=== PATIENT | female | born 1995 | race Caucasian/White ===

== ENCOUNTER 2024-06-03 07:32 | Inpatient (IN) ==
[2024-06-03] MEDS ORDERED: LIDOCAINE 1% LOCAL 20 ML VIAL INFIL PRN (08:02)
[2024-06-03] MEDS ORDERED: OXYTOCIN 30 UNITS/NSS 30 UNITS/500 ML BAG IV PRN (08:02)
[2024-06-03] MEDS: LACTATED RINGER'S 1,000 ML IV PRN (08:31)
[2024-06-03 08:38] LABS: Hematocrit (blood only) 39.1 % (37.0-47.0); Hemoglobin 12.9 g/dl (12.0-16.0); Mean Corpuscular Hemoglobin 30.4 pg (25.0-34.0); Mean Corpuscular Volume 92.2 fL (80.0-100.0); Mean Platelet Volume 9.5 fL (9.4-12.4); Platelet Count 265 K/uL (130-400); RDW Coefficient of Variation 12.8 % (11.5-14.5); Red Blood Count 4.24 M/uL (4.20-5.40); White Blood Count 8.94 K/ul (4.8-10.8)
[2024-06-03] MEDS: OXYTOCIN 30 UNITS/NSS 30 UNITS/500 ML BAG IV PRN (09:16)
--- NOTE | 2024-06-03 09:21 | History & Physical Report ---
Date of Service June 03, 2024 Assessment & Plan (1) Encounter for induction of labor: Plan: 29 y/o G 1 40WGA presented for IOL Anthony bulb in Pitocin AROM as indicated Epidural PRN Anthony bulb Monitor FHT Admission and Anticipated Discharge Date Admission Date: June 03, 2024 History of Present Illness Chief Complaint: came in for IOL Primary Care Provider: NO PCP 29 y/o female GP currently at 40WGA with an DELORES 06/02/24 as determined by US, who is here for IOL. complicated by: none Had regular appointments with OB Contractions irregular movement feeling them regularly No Fluid loss No Vaginal bleeding External FHT and external uterine monitors used: Category 1 tracing Labs: Allergies Allergy/AdvReac Type Severity Reaction Status Date / Time No Known Allergies Allergy Verified 06/03/24 08:24 Home Medications Medication Instructions Recorded Confirmed Type vits no.124-ferrous fum 1 tab PO DAILY 06/02/24 06/03/24 History 27 mg iron-folic acid 800 mcg tablet ( Vitamin) Patient History Medical History (Updated 06/03/24 @ 09:27 by Anatoly Panda MD) Varicella vaccination Surgical History History of dental surgery S/P wisdom tooth extraction Family History Mother Hypertension Heart murmur Grandmother (Maternal) Hypertension Denies family history of Ovarian cancer Breast cancer Colorectal cancer Social History Smoking Status: Former smoker Tobacco Type: Cigarettes Do You Dip or Chew Tobacco: No; Hx Alcohol Use: No Hx Substance Use: No Preferred Language: Frisian Communication Ability: Effective Product Marketing Manager Required: No Beliefs That Will Affect Care: None marital status: Single marital status details: claudio Polanco [phone] Current Living Situation: Alone Current Living Situation Comment: lives with fob, dog, cat-fob changing litter current occupational status: employed current occupation: restaurant hourly team member Other Information That Helps Us Care for You: No Feels Safe at Home: Yes Safety Concerns: Feels Safe At This Time Assistive Devices: None Immunizations: Rubella immune OB History G1 MEDIA SENIOR RECRUITER History last pap 06/2023-[facility] [place] Review of Systems denies chest pain or SOB denies fever/chills denies HAMPTON/changes in vision denies dysuria denies LE pain Physical Exam Physical Exam: General: Alert and oriented. No acute distress Cardiac: Regular rate and rhythm, no murmurs appreciated Respiratory: Lungs clear to auscultation bilaterally, No increased work of breathing Abdominal: Soft, non-tender, non-distended. Bowel sounds present. Gravid uterus. Extremities: No lower extremity edema, calves non-tender bilaterally Genitourinary: Manual OB Exam: + cervical dilation 1 cm, + cervical effacement 50% (soft) and + station -2 OB Exam Monitor Tracing: + external FHT monitor used, + external uterine monitor used, + category I and + normal FHT variability speculum was placed and cervix visualized. Anthony catheter inserted into the internal cervical os. 40cc sterile water instilled into the balloon and the catheter then placed on traction and secured to her left thigh. she tolerated the procedure well. Results & Data Vital Signs (Past 12 Hours) Vital Signs Temp Pulse Resp BP 06/03/24 07:45 37.1 C 18 06/03/24 07:41 118 H 137/86 Monitoring External Monitor Cat 1,good acclesl and variations Supervising Physician Co-Signing Physician Notes Resident Physician Supervision Note: I interviewed and examined the patient. Discussed with Dr. Panda and agree with findings and plan as documented in the note. Any exceptions or clarifications are listed here: [None] Documented By: Gretchen Rodriguez MD, FACOG Resident Activity Tracking Resident Involvement: Resident Care Provided Care Provided: OB Delivery
[2024-06-03] MEDS ORDERED: NALBUPHINE HCL 5 MG in SYRINGE 0 ML IV PRN (15:48)
[2024-06-03] MEDS ORDERED: PROMETHAZINE HCL 6.25 MG in SODIUM CHLORIDE 0.9% 50 ML IV PRN (15:48)
[2024-06-03] MEDS ORDERED: LIDOCAINE 2% MPF LOCAL 5 ML VIAL EPI PRN (15:48)
[2024-06-03] MEDS ORDERED: ONDANSETRON INJ 2 MG/ML 2 ML VIAL IV PRN (15:48)
[2024-06-03] MEDS ORDERED: ePHEDrine sulfate 50 MG/ML AMP IV PRN (15:48)
[2024-06-03] MEDS ORDERED: ROPIVACAINE 0.5% PF 5 MG/ML 20 ML VIAL EPI PRN (15:48)
[2024-06-03] MEDS ORDERED: SODIUM CHLORIDE 0.9% PF INJ 10 ML VIAL EPI PRN (15:48)
[2024-06-03] MEDS ORDERED: NALOXONE HCL 1 MG in SODIUM CHLORIDE 0.9% 1,000 ML IV PRN (15:48)
[2024-06-03] MEDS ORDERED: diphenhydrAMINE 50 MG/ML VIAL IV PRN (15:48)
[2024-06-03] MEDS ORDERED: NALOXONE HCL 0.4 MG/1 ML VIAL/CARP IV PRN (15:48)
[2024-06-03] MEDS ORDERED: fentaNYL citrate PF 100 MCG/2 ML VIAL EPI PRN (15:48)
[2024-06-03] MEDS ORDERED: BUPIVACAINE 0.25% PF 30 ML VIAL EPI PRN (15:48)
--- NOTE | 2024-06-03 15:48 | Anesthesiology Consultation ---
Date of Service June 03, 2024 Assessment & Plan Chart Review Chart Review: Patient NOT seen in Pre Admission Testing and Acceptable Risk for Labor Epidural Consults Requested none ASA ASA2 Proposed Anesthesia Anesthesia Type: Labor Epidural Risk / Benefits Reviewed With: PT / POA / Parent / Guardian, Accepts Plan and Informed Consent Obtained History Height/Weight Height: 5 ft 2 in Weight: 84.368 kg Allergies Allergy/AdvReac Type Severity Reaction Status Date / Time No Known Allergies Allergy Verified 06/03/24 08:24 Medications Home Medications Medication Instructions Recorded Confirmed Last Taken vits no.124-ferrous fum 1 tab PO DAILY 06/02/24 06/03/24 05/27/24 08:00 27 mg iron-folic acid 800 mcg tablet ( Vitamin) Active Medications Generic Name Dose Route Start Last Admin Trade Name Freq PRN Reason Stop Dose Admin Oxytocin 30 units in 500 mls @ 10 mls/hr 06/03/24 08:02 06/03/24 13:45 Pitocin 30 Units/Nss IV 06/05/24 08:01 0.6 units/hr .Q24H PRN 10 mls/hr Labor Induction/Augmentation Titration Protocol 0.6 UNITS/HR Lactated Ringer's 1,000 mls @ 125 mls/hr 06/03/24 08:02 06/03/24 15:33 Lr IV 06/05/24 08:01 125 mls/hr .Q8H PRN Infusion L&D Protocol Protocol Past Medical History Medical History (Updated 06/03/24 @ 09:27 by Anatoly Panda MD) Varicella vaccination Exercise / Class Metabolic Activity II 4-5 Yardwork/Stairs/Walk up hill Past Family History Family History Mother Hypertension Heart murmur Grandmother (Maternal) Hypertension Denies family history of Ovarian cancer Breast cancer Colorectal cancer Past Surgical History Surgical History History of dental surgery S/P wisdom tooth extraction Past Anesthesia History No Hx of Anesthesia Complications and No Family Hx of Anesthesia Complications History of PONV No Hx of PONV and No Hx of Motion Sickness Social History Smoking Status: Former smoker Do You Dip or Chew Tobacco: No Hx Alcohol Use: No Hx Substance Use: No substance use type: does not use Physical Exam Vital Signs Last Vital Signs Temp 36.7 C 06/03/24 12:00 Pulse 78 06/03/24 14:03 Resp 20 06/03/24 14:03 BP 120/79 06/03/24 14:03 ENMT Mouth: no dentition abnormality Thyromental Distance: > or= 3.5 Finger Breadths Mallampati Class: II Neck normal visual inspection Respiratory normal respiratory effort Auscultation: lungs clear to auscultation bilaterally Cardiovascular Rate/Rhythm: regular rate and regular rhythm Psychiatric Orientation: alert Testing Laboratory Results 06/03/24 08:15
[2024-06-03] MEDS: fentANYL 2 MCG/ML BUPIVacaine 0.125%-NSS 100ML BAG ONE (16:13)
[2024-06-03] MEDS: LIDOCAINE 2%/EPINEPHRINE 1:200,000 20 ML PF ONE (16:15)
[2024-06-03] MEDS: SODIUM CHLORIDE 0.9% PF INJ 10 ML VIAL ONE (16:15)
[2024-06-03] MEDS: BUPIVACAINE 0.25% PF 30 ML VIAL ONE (16:16)
[2024-06-03] MEDS: fentaNYL citrate PF 100 MCG/2 ML VIAL ONE (18:22)
[2024-06-03] MEDS: ePHEDrine sulfate 50 MG/ML AMP ONE (18:22)
[2024-06-03] MEDS: BUPIVACAINE 0.25% PF 30 ML VIAL EPI STA (18:23)
[2024-06-03] MEDS: LIDOCAINE 2%/EPINEPHRINE 1:200,000 20 ML PF EPI STA (18:23)
[2024-06-03] MEDS: fentaNYL citrate PF 100 MCG/2 ML VIAL EPI STA (18:23)
[2024-06-03] MEDS: SODIUM CHLORIDE 0.9% PF INJ 10 ML VIAL EPI STA (18:23)
[2024-06-03] MEDS: fentANYL 2 MCG/ML BUPIVacaine 0.125%-NSS 100ML BAG EPI PRN (21:44)
[2024-06-04] MEDS: CALCIUM CARBONATE 500 MG CHEWABLE TAB ONE (03:43)
[2024-06-04] MEDS ORDERED: oxyCODONE/ACETAMINOPHEN 5mg/325mg TAB PO PRN (04:38)
[2024-06-04] MEDS ORDERED: HYDROCORTISONE ACETATE 25 MG SUPP PR PRN (04:38)
[2024-06-04] MEDS ORDERED: OXYTOCIN 30 UNITS/NSS 30 UNITS/500 ML BAG IV PRN (04:38)
[2024-06-04] MEDS ORDERED: bisacodyL 10 MG SUPP PR PRN (04:38)
--- NOTE | 2024-06-04 04:56 | Delivery Summary ---
Vaginal Delivery Summary Date of Service June 04, 2024 Vaginal Delivery Summary and 1st Degree LAC Patient is a 29-year-old G1, P0 female EDC 06/02/2024 who presented at 40-2/7 weeks for induction of labor because of postterm . A cervical balloon and Pitocin induction per labor and delivery protocol were begun. After the balloon was expelled, membranes were ruptured for thin meconium stained fluid. She received effective epidural analgesia. During her labor, there were episodes of moderate to severe variables which resolved with position change and intermittently stopping the Pitocin. She ultimately progressed to full dilation and pushed effectively over intact perineum for delivery of a viable male infant. After the head was delivered, the rest the was delivered without maternal effort placed on the mother's abdomen for further attention and drying. He was vigorous crying and moving all 4 limbs. After 1 minute the cord was clamped and cut. After cord blood was obtained, the placenta was expressed intact with a three-vessel cord. bleeding was controlled with dilute Pitocin and fundal massage. A first-degree perineal laceration was repaired with 3-0 chromic in the usual fashion. QBL was 102 mL. Mother and infant were doing well after delivery. [facility] [place] Vaginal Delivery Charge Delivery Type Details: and 1st Degree LAC
[2024-06-04] MEDS: DIPHTHER/TETAN/PERTUS Vaccine (Tdap, Adol/Adult) 0.5mL IM ONE (05:40)
[2024-06-04] MEDS: BENZOCAINE 20% SPRY 85 APPLN/85 GM CAN EXT PRN (06:17)
[2024-06-04] MEDS: IBUPROFEN 600 MG TAB PO PRN (06:34)
--- NOTE | 2024-06-04 08:05 | Anesthesia Procedure Note ---
Date of Service June 04, 2024 Anesthesia Post Epidural Note Vital Signs Vital Signs: Temp Pulse Resp BP Pulse Ox 37.1 C 96 H 18 106/63 98 06/04/24 06:59 06/04/24 06:30 06/04/24 06:59 06/04/24 06:30 06/04/24 04:26 Pain Intensity Abdomen: Pain Intensity: 3 Notes Mental Status: alert / awake / arousable and participated in evaluation Nausea / Vomiting: adequately controlled Pain: adequately controlled Airway Patency, RR, SpO2: stable & adequate BP & HR: stable & adequate Hydration State: stable & adequate Neuraxial Anesthesia: was administered and sensory block resolved Anesthetic Complications: no major complications apparent and Pt Satisfied with anesthetic care Epidural: Removed without complications and With tip intact
[2024-06-04] MEDS: PRENATAL VITAMIN 1 TAB PO SCH (08:45)
[2024-06-04] MEDS: ACETAMINOPHEN 325 MG TAB PO PRN (08:45)
[2024-06-04] MEDS: DOCUSATE SODIUM 100 MG CAP PO SCH (08:45)
[2024-06-05 07:41] LABS: Hematocrit (blood only) 33.5 % (37.0-47.0); Hemoglobin 11.1 g/dl (12.0-16.0); Mean Corpuscular Hemoglobin 30.2 pg (25.0-34.0); Mean Corpuscular Hgb Conc 33.1 g/dL (32.0-36.0); Mean Corpuscular Volume 91.3 fL (80.0-100.0); Mean Platelet Volume 9.4 fL (9.4-12.4); Platelet Count 203 K/uL (130-400); RDW Coefficient of Variation 12.8 % (11.5-14.5); RDW Standard Deviation 42.6 fL (36.4-46.3); Red Blood Count 3.67 M/uL (4.20-5.40); White Blood Count 14.47 K/ul (4.8-10.8)
--- NOTE | 2024-06-05 09:42 | Obstetrical Progress Note ---
Date of Service June 05, 2024 Assessment & Plan (1) state: Requesting D/C today Subjective Ambulation: ambulating normally Voiding: no voiding problems Passing Gas:: Yes Diet Tolerance:: regular diet Lochia:: Small Feeding Type:: breast feeding Physical Exam Constitutional WD/WN, vitals as above Eyes PERRL, conjunctivae normal, anicteric sclerae Neck normal visual inspection Respiratory normal respiratory effort and able to speak in complete sentences; no respiratory distress and no labored breathing Cardiovascular Rate/Rhythm: regular rate and regular rhythm Extremities: no edema Chest (Breasts) Chest: normal inspection of chest Gastrointestinal (Abdomen) Inspection/Auscultation: abdomen normal to inspection Soft, postgravid Psychiatric A+Ox3, euthymic affect Genitourinary OB Exam Abdomen: + fundal height Fundus: + firm and + relation to umbilicus (fundus just below umbilicus); not tender Results & Data Vital Signs (Past 12 Hours) Vital Signs Temp Pulse Resp BP O2 Del Method 06/05/24 01:40 97.7 F 76 18 123/78 Room Air
[2024-06-05] MEDS ORDERED: bisacodyL 5 MG TABEC PO SCH (20:00)
== END 2024-06-05 16:10 | disposition home or self-care (01) | DRG 807 ==
LOC: 4S1 07:32 → 4E2 06-04 07:17